=== PATIENT | female | born 1980 | race Caucasian/White ===

== ENCOUNTER 2016-08-22 22:14 | Inpatient (IN) | payer OTHER ==
[~2016-08-22] VITALS: Ht 172.7 cm; Wt 83.0 kg
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
--- NOTE | ~2016-08-22 | EKG ---
[place] [address] [facility] [address] [place] [address] ELECTROCARDIOGRAM REPORT Name: FARHAT MARTINO Room #: 305-P ADM IN M.R.#: [id number] Admission: 08/22/16 Attend Phys: Clarke Sharma MD Discharge: Date of : 84 Report #: [id number] THIS REPORT FOR: //name// [facility] ED Test Date: 2016-08-22 Test Time: 22:30:02 Pat Name: FARHAT MARTINO Department: Room: [facility] Gender: F Sole Filler: KKYOUNG : 1980 Requested By: Sabino Williamson Order Number: [id number] MD: Sadi Gordon Measurements Intervals [place] Rate: 90 P: 55 IN: 158 QRS: 49 QRSD: 96 T: 28 QT: 355 QTc: 435 Interpretive Statements Sinus rhythm No significant abnormality No previous ECG available for comparison Electronically Signed On 08-23-2016 7:42:12 BOARD CERTIFIED BEHAVIORAL ANALYST by Sadi Gordon [email or web address] <ELECTRONICALLY SIGNED> By: Sadi Gordon MD, [facility] 08/23/16 0742 2230 29 Sadi Gordon MD, FACC /EPI
[~2016-08-22 22:14] MED LIST: ALBUTEROL INH; AMBIEN 5 MG TABL5 MG; AMOXICILLIN875 MG PO; ENOXAPARIN80 MG/0.8; EXPECTORAN100 MG/5 M; GABAPENTIN100 MG; IBUPROFEN 600600 M1; KLONOPIN1 MG; LANOLIN56 GM; MEDROL DOSPAK21 TAB PO; NAPROSYN500 MG PO; NORCO 5-325 TA1 EACH; NORCO 5-325 TA1 EACH PO; NORCO 7.5-3251 EACH PO; OXYCODONE HCL E10 MG PO; PREDNISONE 20 M20 M1 PO; PRISTIQ100 MG
[2016-08-22 22:15] VITALS: BP 108/48
[2016-08-22] MEDS ORDERED: CLONAZEPAM 1 MG1 M1 PO (22:20)
[2016-08-22] MEDS ORDERED: TRAZODONE HCL100 MG PO (22:21)
[2016-08-22 22:35] LABS: HEMATOCRIT 45.3 % (37.0-47.0); HEMOGLOBIN 15.6 gm/dL (12.0-15.0); MCH 33.4 pg (26.0-34.0); MCHC 34.6 % (28.0-37.0); MCV 96.7 fL (80.0-100.0); PLATELET COUNT 312 thou/uL (150-400); RBC 4.68 mil/uL (4.20-5.00); RDW 12.9 % (10.5-14.5); WBC 9.2 thou/uL (4.0-11.0)
[2016-08-22 22:38] LABS: ANION GAP 11 mmol/L (7-16); BUN 13 mg/dL (7-18); CALCIUM 8.7 mg/dL (8.5-10.1); CHLORIDE 106 mmol/L (98-107); CO2 27 mmol/L (21-32); CREATININE 0.6 mg/dL (0.6-1.3); GLUCOSE 91 mg/dL (70-99); POTASSIUM 4.2 mmol/L (3.5-5.1); SODIUM 144 mmol/L (136-145)
[2016-08-22 22:39] LABS: MANUAL DIFF YES
[2016-08-22 22:44] LABS: ALBUMIN 4.1 g/dL (3.4-5.0); ALKALINE PHOSPHATASE 53 U/L (46-116); SALICYLATE 5.1 mg/dL (2.8-20.0); SGOT 6 U/L (15-37); SGPT 21 U/L (30-65); TOTAL BILIRUBIN 0.3 mg/dL (<0.1-1.0); TOTAL PROTEIN 7.8 g/dL (6.4-8.2)
[2016-08-22 22:46] LABS: ACETAMINOPHEN < 2 ug/mL (10-30)
[2016-08-22 23:27] LABS: ABSOLUTE NEUTROPHILS 3.4 thou/uL (1.4-8.2); ATYPICAL LYMPHS 5 %; TOTAL CELL COUNT 100
[2016-08-23] VITALS (7 sets, daily range): BP systolic 90–113; BP diastolic 45–68
[2016-08-23 00:04] LABS: AMP/METHAMP Negative (Negative); BARBITURATES Negative (Negative); BENZODIAZEPINES Negative (Negative); COCAINE Negative (Negative); METHADONE Negative (Negative); OPIATES POSITIVE (Negative); PCP Negative (Negative); THC Negative (Negative)
[2016-08-23] MEDS ORDERED: CLONAZEPAM 0.50.5 M1 PO (15:09)
== END 2016-08-23 16:07 | disposition home or self-care (01) | DRG 918 ==
LOC: ER 22:14 → EROBS 23:41 → 3N 23:41
PROVIDERS: Emergency Medicine
DX: T44.7X2A Poisoning by beta-adrenoreceptor antagonists, intentional self-harm, initial encounter (principal); T25.322A Burn of third degree of left foot, initial encounter; F10.129 Alcohol abuse with intoxication, unspecified; J45.909 Unspecified asthma, uncomplicated; F32.9 Major depressive disorder, single episode, unspecified; F43.10 Post-traumatic stress disorder, unspecified; F17.210 Nicotine dependence, cigarettes, uncomplicated; G89.4 Chronic pain syndrome; Z60.2 Problems related to living alone; F41.1 Generalized anxiety disorder; Z85.828 Personal history of other malignant neoplasm of skin

== ENCOUNTER 2018-07-30 15:57 | Emergency (ER) | payer OTHER ==
[~2018-07-30] VITALS: Ht 172.7 cm; Wt 86.2 kg
[~2018-07-30 15:57] MED LIST changes: +CLONAZEPAM 0.50.5 M1 PO; +CLONAZEPAM 1 MG1 M1 PO; +TRAZODONE HCL100 MG PO
[2018-07-30 16:28] LABS: ABSOLUTE NEUTROPHILS 5.2 thou/uL (1.4-8.2); BASOPHILS 0.1 % (0.0-2.0); EOSINOPHILS 1.6 % (0.0-3.0); HEMATOCRIT 39.6 % (37.0-47.0); LYMPHOCYTES 31.7 % (24.0-44.0); MCH 32.6 pg (26.0-34.0); MCHC 35.4 g/dL (28.0-37.0); MCV 92.1 fL (80.0-100.0); MONOCYTES 6.9 % (1.0-8.0); PLATELET COUNT 351 thou/uL (150-400); POLYS 59.7 % (36.0-66.0); RDW 12.1 % (10.5-14.5); WBC 8.7 thou/uL (4.0-11.0)
[2018-07-30 16:43] LABS: ANION GAP 14 mmol/L (7-16); BUN 7 mg/dL (7-18); CALCIUM 9.2 mg/dL (8.5-10.1); CHLORIDE 102 mmol/L (98-107); CO2 20 mmol/L (21-32); CREATININE 0.5 mg/dL (0.6-1.0); GLUCOSE 88 mg/dL (74-106); POTASSIUM 3.6 mmol/L (3.5-5.1); SODIUM 136 mmol/L (136-145)
[2018-07-30 16:47] LABS: ALBUMIN 3.3 g/dL (3.4-5.0); SGOT 20 U/L (15-37); SGPT 29 U/L (30-65); TOTAL BILIRUBIN 0.5 mg/dL (<0.1-1.0); TOTAL PROTEIN 7.4 g/dL (6.4-8.2); TROPONIN-I <0.06 ng/mL (<0.06)
[2018-07-30 16:55] LABS: D-DIMER 0.77 ug/mLFEU (0.19-0.50); PROTIME 10.2 Seconds (9.3-11.4)
[2018-07-30] MEDS ORDERED: FLONASE 0.05%50 MCG NASAL (18:21)
[2018-07-30] MEDS ORDERED: VENTOLIN HFA 1818 GM INH (18:21)
[2018-07-30 18:33] VITALS: BP 114/86
--- NOTE | 2018-07-31 15:12 | EKG ---
[address] [address] ELECTROCARDIOGRAM REPORT Name: FARHAT MARTINO [id number] Admission: 07/30/18 Attend Phys: Discharge: 07/30/18 Date of : 84 Report #: [id number] THIS REPORT FOR: //name// [facility] ED Test Date: 2018-07-30 Test Time: 16:35:33 Pat Name: FARHAT MARTINO Department: Room: Gender: F Vacuum Applicator Operator: ROSIBEL : 1980 Requested By: Magi Person Order Number: [id number] MD: Tre Romero Measurements Intervals [place] Rate: 81 P: 33 [place]: 150 QRS: 37 QRSD: 87 T: 15 QT: 368 QTc: 428 Interpretive Statements Sinus rhythm Baseline wander in lead(s) V3,V4,V5,V6 Compared to ECG 08/22/2016 22:30:02 No significant changes Electronically Signed On 07-31-2018 15:12:32 PUBLIC ADDRESS SYSTEM INSTALLER by Tre Romero [email or web address] <ELECTRONICALLY SIGNED> By: Tre Romero MD 07/31/18 1512 1635 1635 Tre Romero MD /ANGELA
== END 2018-07-30 18:41 | disposition home or self-care (01) ==
LOC: ER 15:57
PROVIDERS: Physician Assistant
DX: O99.512 Diseases of the respiratory system complicating pregnancy, second trimester (principal); Z3A.18 18 weeks gestation of pregnancy; J45.909 Unspecified asthma, uncomplicated; J06.9 Acute upper respiratory infection, unspecified